=== PATIENT | male | born 1955 | race Caucasian/White ===

== ENCOUNTER 2018-06-16 13:49 | Emergency (ER) | payer MEDICAID ==
[~2018-06-16] VITALS: Ht 177.8 cm; Wt 63.6 kg
[~2018-06-16 13:49] MED LIST: no home meds
[2018-06-16] MEDS ORDERED: HYDROcodone/acetaminophen 5mg/325mg tablet PO ONE (14:35)
--- NOTE | 2018-06-16 14:35 | NUR ---
assumed care from wendie COLEMAN for lunch break
[2018-06-16 14:56] VITALS: BP 123/79
[2018-06-16] MEDS ORDERED: NAPR-56 PO (15:03)
== END 2018-06-16 15:34 | disposition home or self-care (01) ==
LOC: ER 13:50
DX: M54.9 Dorsalgia, unspecified (principal); Y04.8XXA Assault by other bodily force, initial encounter; Y93.89 Activity, other specified; Y92.89 Other specified places as the place of occurrence of the external cause; Y99.8 Other external cause status
CPT/HCPCS: 72100; 99283